=== PATIENT | male | born 1965 | race Caucasian/White ===

== ENCOUNTER → 2016-09-07 | Outpatient (REF) | payer MEDICARE, MEDICAID | LOC: M LAB REF 16:54 | PROVIDERS: ATTEND Internal Medicine Nephrology | DX: N39.0 Urinary tract infection, site not specified (principal) ==

== ENCOUNTER 2017-04-07 00:04 | Emergency (ER) | payer MEDICARE, MEDICAID ==
[~2017-04-07] VITALS: Ht 182.9 cm; Wt 117.8 kg
[~2017-04-07 00:04] MED LIST: CARV25TA PO; DEXI60CA2 PO; FURO40TA2 PO; GLIM4TAB PO; LISI30TA4 PO; VITA1CAP40 PO; WARF-23 PO
[2017-04-07 01:52] LABS: BASO # 0.1 K/mm3 (0.0-0.2); BASO % 1.3 % (0.0-1.0); EOS % 0.9 % (0.0-3.0); LARGE UNSTAINED CELL # 0.1 K/mm3 (0.0-0.4); LARGE UNSTAINED CELL % 1.6 % (0.0-4.0); LYMPH # 1.1 K/mm3 (1.5-4.5); LYMPH % 18.5 % (24.0-44.0); MEAN CORPUSCULAR VOLUME 94.2 fl (80.0-96.0); MONO # 0.6 K/mm3 (0.0-0.8); MONO % 10.6 % (0.0-5.0); NEUTROPHILS # 3.6 K/mm3 (1.8-7.7); NEUTROPHILS % 67.2 % (36.0-66.0); PLATELET COUNT, AUTOMATED 295 k/mm3 (150-450); RED CELL DISTRIBUTION WIDTH 14.5 % (11.5-14.5); WHITE BLOOD COUNT 5.3 K/mm3 (4.0-10.0)
[2017-04-07 02:01] LABS: INR 1.57
[2017-04-07 02:08] LABS: CREATININE FOR GFR 5.45 MG/DL (0.70-1.30); GLOMERULAR FILTRATION RATE 11.9 (>56); POTASSIUM SERUM 3.5 MEQ/L (3.5-5.1)
[2017-04-07] MEDS ORDERED: AUGMENTIN 875 MG TAB PO ONE (02:30)
[2017-04-07] MEDS ORDERED: AUGM875T28 PO (02:31)
[2017-04-07 02:36] VITALS: BP 179/88
--- NOTE | 2017-04-07 08:17 | REP ---
PA and lateral chest: Comparison is 09/22/2008. The lung lomas are clear. Cardiac size is normal. The renay, mediastinum, and bony thorax are unremarkable. The pacemaker and sternotomy wires are again identified. Impression: No acute cardiopulmonary findings. Signed by Wero Fine MD 04/07/2017 08:07 A
--- NOTE | 2017-04-07 20:20 | ECGEPIP ---
Stationary ECG Study [facility] - ED Test Date: 2017-04-07 Pat Name: KATHY PUENTES Department: Room: - Gender: M Supervisor Special Education: juan a : 1965 Requested By: Ab Schmitt Order Number: [id number] Reading MD: Beka Bhatia Measurements Intervals [place] Rate: 70 P: -7 TN: 196 QRS: 55 QRSD: 113 T: 100 QT: 409 QTc: 443 Interpretive Statements SINUS RHYTHM POSSIBLE ANTERIOR MYOCARDIAL INFARCTION, OF INDETERMINATE AGE IVCD NONSPECIFIC ST T WAVE CHANGES NO OLD ECG FOR COMPARISON Electronically Signed On 04-07-2017 20:20:39 EDT by Beka Bhatia
[2017-05-31] MEDS ORDERED: LISI10TA4 PO (13:31)
== END 2017-04-07 02:50 | disposition home or self-care (01) ==
LOC: M ED 00:04
DX: J01.90 Acute sinusitis, unspecified (principal); E66.9 Obesity, unspecified; N18.6 End stage renal disease; I25.10 Atherosclerotic heart disease of native coronary artery without angina pectoris; E11.9 Type 2 diabetes mellitus without complications; I12.0 Hypertensive chronic kidney disease with stage 5 chronic kidney disease or end stage renal disease; Z99.2 Dependence on renal dialysis; Z95.1 Presence of aortocoronary bypass graft

== ENCOUNTER → 2017-06-03 | Outpatient (CLI) | payer MEDICARE, MEDICAID ==
[~2017-06-03] MED LIST changes: +AUGM875T28 PO; +LISI10TA4 PO
[2017-06-03 12:23] LABS: INR 1.84
[2017-06-03 12:45] LABS: BASO # 0.1 10^3/uL (0.0-0.2); BASO % 0.6 % (0.0-1.0); EOS # 0.2 10^3/uL (0.0-0.50); EOS % 2.5 % (0.0-3.0); IMMATURE GRANULOCYTE % 0.5 % (0-0); LYMPH # 1.7 10^3/uL (1.5-4.5); LYMPH % 21.4 % (24.0-44.0); MEAN CORPUSCULAR HEMOGLOBIN 32.9 pg (27.0-33.0); MEAN CORPUSCULAR HGB CONC 33.3 g/dl (32.0-36.5); MEAN CORPUSCULAR VOLUME 98.6 fl (80.0-96.0); MONO # 0.5 10^3/uL (0.0-0.8); MONO % 6.5 % (0.0-5.0); NEUTROPHILS # 5.5 10^3/uL (1.8-7.7); NEUTROPHILS % 68.5 % (36.0-66.0); PLATELET COUNT, AUTOMATED 343 10^3/uL (150-450); RED CELL DISTRIBUTION WIDTH 13.9 % (11.5-14.5)
[2017-06-03 12:49] LABS: ALBUMIN 3.4 GM/DL (3.2-5.2); ALBUMIN/GLOBULIN RATIO 0.85 (1.00-1.93); BILIRUBIN,TOTAL 0.3 MG/DL (0.2-1.0); CREATININE FOR GFR 3.97 MG/DL (0.70-1.30); GLOMERULAR FILTRATION RATE 17.2 (>56); POTASSIUM SERUM 4.3 MEQ/L (3.5-5.1); TOTAL PROTEIN 7.4 GM/DL (6.4-8.2)
== END ==
LOC: M LAB 11:35
PROVIDERS: ATTEND Nurse Practitioner Family
DX: Z01.812 Encounter for preprocedural laboratory examination (principal); Z79.01 Long term (current) use of anticoagulants

== ENCOUNTER → 2017-09-21 | Outpatient (CLI) | payer MEDICARE, MEDICAID ==
[~2017-09-21] MED LIST changes: -AUGM875T28 PO; -CARV25TA PO; -DEXI60CA2 PO; -FURO40TA2 PO; -GLIM4TAB PO; +ISOVUE-300 61% 50ML VIAL (Q9967) As Ordered; -LISI10TA4 PO; -LISI30TA4 PO; -VITA1CAP40 PO; -WARF-23 PO
== END | disposition home or self-care (01) ==
LOC: M IRPRO 08:54
DX: T82.590A Other mechanical complication of surgically created arteriovenous fistula, initial encounter (principal); E11.22 Type 2 diabetes mellitus with diabetic chronic kidney disease; I12.0 Hypertensive chronic kidney disease with stage 5 chronic kidney disease or end stage renal disease; N18.6 End stage renal disease; Z99.2 Dependence on renal dialysis; I25.10 Atherosclerotic heart disease of native coronary artery without angina pectoris; E78.00 Pure hypercholesterolemia, unspecified; D68.59 Other primary thrombophilia
CPT/HCPCS: 36901

== ENCOUNTER → 2017-11-25 | Outpatient (CLI) | payer MEDICARE, MEDICAID ==
[~2017-11-25] MED LIST changes: +GASTROGRAFIN SOLUTION 30ML (Q9963) As Ordered; -ISOVUE-300 61% 50ML VIAL (Q9967) As Ordered
== END ==
LOC: M RAD 12:34
DX: K43.2 Incisional hernia without obstruction or gangrene (principal); K43.9 Ventral hernia without obstruction or gangrene; Z95.0 Presence of cardiac pacemaker; N26.1 Atrophy of kidney (terminal)
CPT/HCPCS: Q9963

== ENCOUNTER → 2017-12-31 | Day surgery (SDC) | payer MEDICARE, MEDICAID ==
[~2017-12-31] MED LIST changes: -GASTROGRAFIN SOLUTION 30ML (Q9963) As Ordered; +GLYCOPYRROLATE INJ 0.2 MG/ML 2 ML VIAL As Ordered; +KETOROLAC 60 MG/2 ML VIAL (J1885) As Ordered; +LIDOCAINE 2% INJ 100 MG/5 ML SDV (FOR ANES.) As Ordered; +LR 1,000 ML IV; +MIDAZOLAM INJ 2 MG/2 ML VIAL (J2250) As Ordered; +NEOSTIGMINE 10 MG/10 ML VIAL (J2710) As Ordered; +ONDANSETRON 4MG/2ML VIAL (J2405) As Ordered; +PROPOFOL 200 MG/20 ML VIAL As Ordered; +ROCURONIUM BROMIDE 50 MG/5 ML VIAL As Ordered; +dexameTHASONE 4 MG/ML 1ML VIAL (J1100) As Ordered; +fentaNYL 100 MCG/2 ML INJECTION (J3010) As Ordered
[2017-12-31 09:53] LABS: POTASSIUM SERUM 3.3 MEQ/L (3.5-5.1)
[2017-12-31 10:25] LABS: BEDSIDE GLUCOSE 151 MG/DL (70-105)
== END | disposition home or self-care (01) ==
LOC: M SDC 09:12
DX: K43.0 Incisional hernia with obstruction, without gangrene (principal); Z53.09 Procedure and treatment not carried out because of other contraindication
CPT/HCPCS: J2250

== ENCOUNTER → 2018-02-17 | Outpatient (CLI) | payer MEDICARE, MEDICAID ==
[2018-02-17 16:57] LABS: ANION GAP 11 MEQ/L (8-16); BLOOD UREA NITROGEN 56 MG/DL (7-18); CALCIUM LEVEL 8.6 MG/DL (8.5-10.1); CARBON DIOXIDE LEVEL 26 MEQ/L (21-32); CHLORIDE LEVEL 102 MEQ/L (98-107); CREATININE FOR GFR 6.45 MG/DL (0.70-1.30); GLOMERULAR FILTRATION RATE 9.8 (>56); GLUCOSE, FASTING 152 MG/DL (70-100); SODIUM LEVEL 139 MEQ/L (136-145)
[2018-02-17 17:00] LABS: POTASSIUM SERUM 5.3 MEQ/L (3.5-5.1)
== END ==
LOC: M WUC 15:26
DX: I10 Essential (primary) hypertension (principal)
CPT/HCPCS: 80048

== ENCOUNTER → 2018-03-21 | Outpatient (CLI) | payer MEDICARE, MEDICAID | LOC: M RAD 13:11 | DX: I50.9 Heart failure, unspecified (principal) | CPT/HCPCS: 71046 ==

== ENCOUNTER → 2018-05-06 | Outpatient (CLI) | payer MEDICARE, MEDICAID | LOC: M SMT 13:57 | DX: R05 Cough (principal) | CPT/HCPCS: 71046 ==

== ENCOUNTER → 2019-07-16 | Outpatient (CLI) | payer MEDICARE, MEDICAID ==
[~2019-07-16] MED LIST changes: +AUGM875T28 PO; +CALC1CAP31 PO; +CARV25TA PO; +DEXI60CA2 PO; +FURO40TA2 PO; +GLIM4TAB3 PO; -GLYCOPYRROLATE INJ 0.2 MG/ML 2 ML VIAL As Ordered; -KETOROLAC 60 MG/2 ML VIAL (J1885) As Ordered; -LIDOCAINE 2% INJ 100 MG/5 ML SDV (FOR ANES.) As Ordered; +LISI-672 PO; +LISI10TA4 PO; -LR 1,000 ML IV; -MIDAZOLAM INJ 2 MG/2 ML VIAL (J2250) As Ordered; -NEOSTIGMINE 10 MG/10 ML VIAL (J2710) As Ordered; -ONDANSETRON 4MG/2ML VIAL (J2405) As Ordered; -PROPOFOL 200 MG/20 ML VIAL As Ordered; -ROCURONIUM BROMIDE 50 MG/5 ML VIAL As Ordered; +VITA50005 PO; +WARF-23 PO; -dexameTHASONE 4 MG/ML 1ML VIAL (J1100) As Ordered; -fentaNYL 100 MCG/2 ML INJECTION (J3010) As Ordered
--- NOTE | 2019-07-16 09:13 | REP ---
Chest x-ray: Four views. History: Acute bronchitis. Comparison study: May 06, 2018. Findings: A bipolar pacemaker is seen in place in the right heart via the left side. Median sternotomy wires are noted. Cardiomediastinal silhouette is unchanged. The lungs are well inflated and clear. The pleural angles are sharp. There are degenerative changes in the thoracic spine. Impression: Prior sternotomy. Pacemaker. Otherwise no acute disease. Electronically Signed by Gómez Robison MD 07/16/2019 09:04 A
== END ==
LOC: M ADAMS 08:51
PROVIDERS: ATTEND Physician Assistant Medical
DX: J20.9 Acute bronchitis, unspecified (principal)

== ENCOUNTER → 2019-11-17 | Outpatient (CLI) | payer MEDICARE, MEDICAID ==
[~2019-11-17] MED LIST changes: -GLIM4TAB3 PO; +GLIM4TAB5 PO
--- NOTE | 2019-11-17 16:02 | REP ---
CT CHEST WITHOUT CONTRAST: HISTORY: Cough. Orthopnea. Comparison is made with chest x-ray from July 16, 2019. Comparison chest CT study October 29, 2005. 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 Median sternotomy wires are noted. The heart is not enlarged. No infiltrate is seen in the lung lomas. There is no evidence of pleural or pericardial effusion. No pulmonary nodule or mass lesion is seen. There is vascular calcification and vascular stents appear to be present in the coronary arteries. No mediastinal mass or adenopathy is observed. No adrenal lesion is seen. The kidneys appear atrophic bilaterally. There is a healing fracture of the right posterolateral 10th rib. No other significant bony abnormality is seen. IMPRESSION: No active disease. Pacemaker. Status post coronary artery stenting. Healing right posterior rib fracture. Electronically Signed by Gómez Robison MD 11/17/2019 04:19 P
== END ==
LOC: M RAD 14:48
PROVIDERS: ATTEND Nurse Practitioner Family
DX: R06.01 Orthopnea (principal); R05 Cough; Z95.0 Presence of cardiac pacemaker